=== PATIENT | male | born 1970 | race Caucasian/White ===

== ENCOUNTER 2016-12-15 12:17 | Emergency (ER) | payer SELFPAY ==
[~2016-12-15] VITALS: Ht 170.2 cm; Wt 91.5 kg
[2016-12-15 12:23] VITALS: Ht 170.2 cm; Wt 91.5 kg
[2016-12-15] MEDS ORDERED: LIDOCAINE 2% (MDV) 20 ML INJ INJ ONE (13:30)
[2016-12-15] MEDS ORDERED: IBUPROFEN 600 MG TAB PO ONE (13:30)
[2016-12-15] MEDS ORDERED: DIPHTH/TET/ACEL PERTUSS (ADULT) 0.5 ML VIAL IM* ONE (13:30)
--- NOTE | 2016-12-15 14:17 | RADRPT ---
PROCEDURE: XR thumb CLINICAL INDICATION: laceration by table saw TECHNIQUE: AP, oblique and lateral views of the right thumb were obtained. COMPARISON: No prior studies are available for comparison. FINDINGS: There is a minimally-displaced fracture of the distal tuft of the first digit with associated soft t issue laceration. There are several radiopaque densities along the distal first digit which may rep resent radiopaque foreign body. The joint spaces are preserved. Bone mineralization is normal. No si gnificant soft tissue swelling is seen. IMPRESSION: There is a minimally-displaced fracture of the distal tuft of the first digit with associated soft t issue laceration. There are several radiopaque densities along the distal first digit which may rep resent radiopaque foreign bodies.. RPTAT: [facility]SM .Maribel Penaloza MD, Date Time Electronically viewed and signed by .Maribel Penaloza MD, on 12/15/2016 14:16 .M/
[2016-12-15] MEDS ORDERED: CEFAZOLIN 1 GM INJ IM ONE (15:00)
[2016-12-15] MEDS ORDERED: IBUP800T25 PO (15:30)
[2016-12-15] MEDS ORDERED: HYDR-906 PO (15:30)
[2016-12-15] MEDS ORDERED: CEPH-443 PO (15:30)
--- NOTE | 2016-12-15 15:44 | ERD ---
ER Documentation Chief Complaint Date/Time DATE: 12/15/16 TIME: 15:35 Chief Complaint left thumb lac today, able to move finger HPI 46-year-old male present ED after he cut his left thumb with table saw earlier today. He was cutting wood at the time. Patient is right-hand dominant. He does not remember when his last tetanus update was. The bleeding has stopped. Denies any other injuries. ROS All systems reviewed and are negative except as per history of present illness. Medications Home Meds Active Scripts Cephalexin* (Keflex*) 500 Mg Capsule, 500 MG PO QID for 7 Days, CAP Prov:GONSALO DALY. RESTORATIVE COORDINATOR 12/15/16 Hydrocodone/Acetaminophen ([place] 5-325 Tablet) 1 Each Tablet, 1 TAB PO Q6H Y for SEVERE PAIN LEVEL 7-10, #7 TAB Prov:GONSALO DALY. RESTORATIVE COORDINATOR 12/15/16 Ibuprofen* (Motrin*) 800 Mg Tab, 800 MG PO Q6H Y for PAIN AND OR ELEVATED TEMP, #30 TAB Prov:GONSALO DALY. RESTORATIVE COORDINATOR 12/15/16 Allergies Allergies: Coded Allergies: No Known Allergy (Unverified , 12/15/16) PMhx/Soc Medical and Surgical Hx: pt denies Medical Hx, pt denies Surgical Hx Hx Alcohol Use: No Hx Substance Use: No Smoking Status: Never smoker Physical Exam Vitals Vital Signs Date Time Temp Pulse Resp B/P Pulse Ox O2 Delivery O2 Flow Rate FiO2 12/15/16 12:23 98.8 73 16 150/75 97 Physical Exam General: Patient is well-developed. Awake, alert, and conversant, in no apparent distress Skin: Warm and dry Head: Normocephalic, atraumatic without palpable deformities Chest: No surface trauma. Nontender without crepitus or deformity. No palpable subcutaneous air. Lungs have good tidal volume, lungs clear to auscultate bilaterally Heart: Regular rate and rhythm. No murmur, rub, or gallop Extremities: Open wound on the distal left thumb with some macerated tissue. No active bleeding. Patient has full flexion and extension of the left thumb. Full range of motion without limitation or pain. Good strength in all extremities. Sensation to light touch intact. All peripheral pulses are intact and equal Neuro: Alert and oriented 4, GCS 15, cranial nerves II through XII intact. Motor and sensory exam is nonfocal. Reflexes are symmetric Results 24 hrs Current Medications Medications (Trade) Dose Ordered Sig/Lenny Route PRN Reason Start Time Stop Time Status Last Admin Dose Admin Diphtheria/ Tetanus/Acell Pertussis (Adacel) 0.5 ml ONCE ONCE IM* 12/15/16 13:30 12/15/16 13:31 DC 12/15/16 13:25 Lidocaine (Xylocaine 2% (Mdv) 20 ml) 20 ml ONCE ONCE INJ 12/15/16 13:30 12/15/16 13:31 DC Ibuprofen (Motrin) 600 mg ONCE ONCE PO 12/15/16 13:30 12/15/16 13:31 DC 12/15/16 13:25 Cefazolin Sodium (Ancef) 1 gm ONCE ONCE IM 12/15/16 15:00 12/15/16 15:01 DC 12/15/16 14:58 PROCEDURE: XR thumb CLINICAL INDICATION: laceration by table saw TECHNIQUE: AP, oblique and lateral views of the right thumb were obtained. COMPARISON: No prior studies are available for comparison. FINDINGS: There is a minimally-displaced fracture of the distal tuft of the first digit with associated soft tissue laceration. There are several radiopaque densities along the distal first digit which may represent radiopaque foreign body. The joint spaces are preserved. Bone mineralization is normal. No significant soft tissue swelling is seen. IMPRESSION: There is a minimally-displaced fracture of the distal tuft of the first digit with associated soft tissue laceration. There are several radiopaque densities along the distal first digit which may represent radiopaque foreign bodies.. RPTAT: HSM .Maribel Penaloza MD, Date Time Electronically viewed and signed by .Maribel Penaloza MD, MD on 12/15/2016 14:16 .M/ CC: GONSALO DALY RESTORATIVE COORDINATOR Procedures/MDM The wound was copiously irrigated. Local anesthesia was provided using 2% lidocaine. After appropriate anesthesia, the area was explored under a bloodless field. Full range of motion of the joint above and below the injury was noted. No foreign body, deep structure or tendon involvement was noted. Nonviable tissue were trimmed from the wound. Because the nature persons injury , suturing is not needed. Patient was dressed with nonadherent dressing. X-ray of the left thumb show a minimally displaced tuft fracture. Because patient has an open fracture, Ancef 1 g IM is given to the patient. The area of injury was immobilized with a middle finger splint. Patient was noted to be comfortable and neurovascularly intact both before and after the immobilization. TDap given to the patient in the ED. Patient advised to follow-up in the ED in 2 days for wound check. The case was reviewed and discussed with Dr. Larsen, who agrees with the plan of care including labs, treatment, and advanced imaging as appropriate. Departure Diagnosis: Primary Impression: Laceration Condition: Stable Patient Instructions: Laceration, Hand Referrals: [facility] Usted se finley hecho un examen mdico de control que le indica que no est en kavitha condicin que requiera tratamiento urgente en el Departamento de Emergencia. Un estudio ms profundo y el tratamiento de jiménez condicin pueden esperar sin ningn riesgo hasta que usted sea atendida/o en el consultorio de jiménez mdico o kavitha cl mykel. Es responsabilidad suya arreglar kavitha guilherme para el seguimiento del imelda. MANEJO DE CONDICIONES NO URGENTES EN EL FUTURO 1) Si usted tiene un mdico de atencin primaria: Usted debera llamar a jiménez mdico de atencin primaria antes de venir al departamento de emergencia. Despus de las horas de consultorio, jiménez doctor o jiménez asociado/a est disponible por telfono. El mdico o enfermero de med en el servicio telefnico puede asesorarle por lyndsey medio para atender el problema, o imelda contrario se puede programar kavitha guilherme. 2) Si usted no tiene un mdico de atencin primaria: Llame al mdico o clnica de referencia que aparece abajo reggie las horas de consultorio para hacer kavitha guilherme para que le vean. CLINICAS: [facility] [phone] [facility] [phone] [id number] [facility] [phone] [address] [place] [phone] [place] [phone] [facility] [phone] [address] Additional Instructions: Regrese a estas instalaciones dentro de [place] para un examen de seguimiento.Regrese antes si jiménez condicin se empeora. GONSALO DALY NP Dec 15, 2016 15:44
== END 2016-12-15 15:55 | disposition home or self-care (01) ==
LOC: FTE 12:17
DX: S61.012A Laceration without foreign body of left thumb without damage to nail, initial encounter (principal); W27.0XXA Contact with workbench tool, initial encounter; Y92.9 Unspecified place or not applicable; Z23 Encounter for immunization
CPT/HCPCS: 73140; 90471; 90715; 96372; 99284; J0690